=== PATIENT | male | born 1985 | race African-American/Black ===

== ENCOUNTER → 2017-01-19 | Day surgery (SDC) | payer OTHER ==
[2017-01-16 12:48] VITALS: Ht 167.6 cm; Wt 73.6 kg
[~2017-01-19] VITALS: Ht 167.6 cm; Wt 73.6 kg
[~2017-01-19] MED LIST: LIDOCAINE HCL 2% 2 ML VIAL (20MG/ML) ONE; MIDAZOLAM HCL 1 MG/ML 2ML VIAL ONE; ONDANSETRON INJ 2 MG/ML 2 ML VIAL ONE; PROPOFOL IV EMULSION 10 MG/ML 20 ML VIAL IV ONE; SODIUM CHLORIDE 0.9% 500ML 500 ML IV ONE
--- NOTE | 2017-01-19 10:35 | Endo History and Physical ---
History & Physical Date of Service: Jan 19, 2017. Chief Complaint: CHANGE IN BOWEL HABITS, RECTAL PAIN/BLEEDING Referring Physician: NIURKA MAYS History of Present Illness 31 yo male who presents for colonoscopy secondary to change in bowel habits and rectal bleeding. Past Surgical History Hx Cardiac Surgery: No Hx Internal Defibrillator: No Hx Pacemaker: No Hx Abdominal Surgery: No Hx of Implantable Prosthesis: No Hx Cancer Surgery: No Hx Thoracic Surgery: No Hx Orthopedic: No Hx Urinary Tract Surgery: No Family History None Social History Smoking Status: Never Smoker Hx Substance Use: No Hx Alcohol Use: Yes (SOCIAL, 1X/WEEK) Allergies Coded Allergies: No Known Allergies (Verified , 01/19/17) Current Medications Reported Home Medications Medications Dose Route/Sig Max Daily Dose Days Date Category No Active Prescriptions or Reported Medications Rx Vital Signs Weight (Kilograms): 73.64 Height (Feet): 5 Height (Inches): 6 Physical Exam General Appearance: WD/WN, no apparent distress Respiratory/Chest: Auscultation: breath sounds normal Cardiovascular: Heart Auscultation: RRR Abdomen: Bowel Sounds: normal Inspection & Palpation: soft, non-distended, no tenderness, guarding & rebound Assessment and Plan Assessment: 31 yo male who presents for colonoscopy secondary to change in bowel habits and rectal bleeding. Plan: Proceed with colonoscopy.
--- NOTE | 2017-01-19 11:10 | Discharge Instructions ---
Endoscopy Patient Instructions Date / Procedure(s) Performed Jan 19, 2017. Colonoscopy Allergy Information Coded Allergies: No Known Allergies (Verified , 01/19/17) Discharge Date / Findings Jan 19, 2017. Rectal ulcers s/p biopsies Medication Instructions OK to resume all medications today as prescribed Reported Home Medications Medications Dose Route/Sig Max Daily Dose Days Date Category No Active Prescriptions or Reported Medications Rx Provider Instructions Activity Restrictions - No exercising or heavy lifting for 24 hours. - Do not drink alcohol the day of the procedure. - Do not drive a car or operate machinery until the day after the procedure. - Do not make any important decisions or sign important papers in 24 hours after the procedure. Following Day: - Return to full activity which may include returning to work/school. Diet Start your diet with liquids and light foods (jello, soup, juice, toast). Then eat your usual diet if not nauseated. Treatment For Common After Affects For mild abdominal pain, bloating, or excessive gas: - Rest - Eat lightly - Lie on right side Follow-Up Information Follow-up with NIURKA MAYS as scheduled Anesthesia Information What You Should Know You have had a procedure that required some medicine to reduce anxiety and discomfort. This treatment is called moderate sedation. After receiving the treatment, you may be sleepy, but you will be able to breathe on your own. The effects of the treatment may last for several hours. Follow these instructions along with Activity/Diet recommendations noted above: * Do NOT do anything where dizziness or clumsiness would be dangerous. * Rest quietly at home today, then you can be up and about tomorrow. * Have a responsible person stay with you the rest of today. * You may have had an I.V. today. If so, you may take the dressing off later today. Recommendations Call your doctor if: * Trouble breathing * Continuous vomiting for more than 24 hours * Temperature above 101 degrees * Severe abdominal pain or bloating * Pain not relieved by pain medicine ordered * There is increased drainage or redness from any incision * A large amount of rectal bleeding greater than 2-3 tablespoons. (If you had a polyp/s removed or have hemorrhoids, a small amount of blood - from the rectum is to be expected.) * You have any unanswered questions or concerns. IN THE EVENT OF A SERIOUS EMERGENCY, GO TO THE NEAREST EMERGENCY ROOM Your discharge instructions were prepared by provider Tarik Chang. Patient Instructions Signature Page Rasta Vargas Patient (or Guardian) Signature/Date: I have read and understand the instructions given to me by my caregivers. Caregiver/RN/Doctor Signature/Date: The above-named patient and/or guardian has received patient instructions on this date. + Original Patient Signature Page (only) stays with chart. Please make copy for patient.
--- NOTE | 2017-01-19 11:10 | GI REPORT ---
Procedure Date: 01/19/2017 10:24 AM Procedure: Colonoscopy Indications: Rectal bleeding, Change in bowel habits Medicines: Monitored Anesthesia Care Complications: No immediate complications. Estimated Blood Loss: Estimated blood loss: none. Procedure: Pre-Anesthesia Assessment: - Prior to the procedure, a History and Physical was performed, and patient medications and allergies were reviewed. The patient's tolerance of previous anesthesia was also reviewed. The risks and benefits of the procedure and the sedation options and risks were discussed with the patient. All questions were answered, and informed consent was obtained. Prior Anticoagulants: The patient has taken no previous anticoagulant or antiplatelet agents. ASA Grade Assessment: I - A normal, healthy patient. After reviewing the risks and benefits, the patient was deemed in satisfactory condition to undergo the procedure. After I obtained informed consent, the scope was passed under direct vision. Throughout the procedure, the patient's blood pressure, pulse, and oxygen saturations were monitored continuously. The scope was introduced through the anus and advanced to the terminal ileum. The colonoscopy was performed without difficulty. The patient tolerated the procedure well. The quality of the bowel preparation was good. The terminal ileum, ileocecal valve, appendiceal orifice, and rectum were photographed. Findings: The perianal and digital rectal examinations were normal. A few three mm ulcers were found in the rectum. No bleeding was present. No stigmata of recent bleeding were seen. Biopsies were taken with a cold forceps for histology. Impression: - A few ulcers in the rectum. Biopsied. Recommendation: - Resume previous diet. - Continue present medications. - Await pathology results. - Repeat colonoscopy for surveillance based on pathology results. - Return to GI office as previously scheduled. Tarik Chang DO 01/19/2017 11:09:07 AM This report has been signed electronically. Note Initiated On: 01/19/2017 10:24 AM I attest to the content of the Intraoperative Record and orders documented therein, exceptions below
--- NOTE | 2017-01-19 11:30 | Anesthesiology Progress Note ---
Anesthesia Post Op Note Date & Time Jan 19, 2017 at 11:30 Vital Signs Pain Intensity: 0 Vital Signs Past 12 Hours Date Time Temp Pulse Resp B/P (MAP) Pulse Ox O2 Delivery O2 Flow Rate FiO2 01/19/17 11:24 72 16 111/70 (84) 94 Room Air 01/19/17 11:10 86 16 119/67 (84) 91 Room Air 01/19/17 10:20 36.6 80 16 115/81 (92) 97 Room Air Notes Mental Status: alert / awake / arousable, participated in evaluation Pt Amnestic to Procedure: Yes Nausea / Vomiting: adequately controlled Pain: adequately controlled Airway Patency, RR, SpO2: stable & adequate BP & HR: stable & adequate Hydration State: stable & adequate Anesthetic Complications: no major complications apparent
[2017-01-19 11:40] VITALS: BP 129/76; PULSE 80; O2SAT 96
== END | disposition home or self-care (01) ==
LOC: C.GI 09:47
PROVIDERS: ATTEND Internal Medicine
DX: K62.5 Hemorrhage of anus and rectum (principal); R19.4 Change in bowel habit; K62.6 Ulcer of anus and rectum; K62.89 Other specified diseases of anus and rectum